=== PATIENT | female | born 1970 | race Caucasian/White ===

== ENCOUNTER → 2017-10-08 | Outpatient (CLI) | payer MEDICARE, MEDICAID ==
[~2017-10-08] MED LIST: KLONOPIN0.5 MG PO; PRISTIQ100 MG PO; SEROQUEL 50 MG50 MG PO; TRAZODONE 150150 M1 PO; TRILEPTAL150 MG PO
== END ==
LOC: M.CT 13:10
DX: Z12.31 Encounter for screening mammogram for malignant neoplasm of breast (principal); N83.202 Unspecified ovarian cyst, left side; K59.09 Other constipation; R31.29 Other microscopic hematuria

== ENCOUNTER → 2017-10-19 | Outpatient (CLI) | payer MEDICARE, MEDICAID ==
--- NOTE | 2017-10-21 09:46 | PF ---
[address] [address] PULMONARY FUNCTION REPORT Name: CHRIS GAYTAN Room: [facility].#: [id number] Admission: 10/19/17 Attend Phys: Marie Cavazos MD Discharge: Date of : 68 Report #: [id number] THIS REPORT FOR: //name// CC: Ana Cavazos DATE OF SERVICE: 10/20/2017 PULMONARY FUNCTION TEST REFERRING PHYSICIAN: JANIYA Joseph SPIROMETRY: The FEV1/FVC was 57% predicted. The FEV1 was 1.72 at 60% predicted. Forced vital capacity was 3 liters at 83% predicted. Total lung capacity was 4.58 liters at 92% predicted and DLCO was 76% predicted. This pulmonary function test demonstrates moderate degree obstructive pulmonary defect with normal DLCO and no positive bronchodilator response. <ELECTRONICALLY SIGNED> By: Flavia Montesinos MD 10/21/17 0946 [id number] Montesinos MD /nt
== END ==
LOC: M.PUL 10:04
DX: J44.9 Chronic obstructive pulmonary disease, unspecified (principal)

== ENCOUNTER → 2018-04-26 | Outpatient (CLI) | payer MEDICARE, MEDICAID | LOC: M.RAD 11:26 | DX: R76.11 Nonspecific reaction to tuberculin skin test without active tuberculosis (principal); Z87.891 Personal history of nicotine dependence ==

== ENCOUNTER → 2018-05-05 | Outpatient (CLI) | payer MEDICARE, MEDICAID | LOC: M.MRI 05-02 11:30 | DX: M71.22 Synovial cyst of popliteal space [Baker], left knee (principal); M25.762 Osteophyte, left knee; F17.210 Nicotine dependence, cigarettes, uncomplicated ==

== ENCOUNTER → 2021-06-24 | Outpatient (CLI) | payer OTHER, MEDICAID ==
[~2021-06-24] MED LIST changes: +CIPRO500 M1 PO; +METRONIDAZOLE500 M4 PO; +PREDNISONE 20 M20 M1 PO
== END ==
LOC: M.RAD 09:34
PROVIDERS: ATTEND Nurse Practitioner Family
DX: Z12.31 Encounter for screening mammogram for malignant neoplasm of breast (principal)

== ENCOUNTER → 2021-06-24 | Outpatient (CLI) | payer OTHER | LOC: M.CT 09:40 | PROVIDERS: ATTEND Nurse Practitioner Family | DX: Z13.6 Encounter for screening for cardiovascular disorders (principal); I25.10 Atherosclerotic heart disease of native coronary artery without angina pectoris ==

== ENCOUNTER 2021-06-27 13:15 | Emergency (ER) | payer OTHER, MEDICAID ==
[~2021-06-27] VITALS: Ht 162.6 cm; Wt 72.6 kg
[~2021-06-27 13:15] MED LIST changes: -CIPRO500 M1 PO; -METRONIDAZOLE500 M4 PO; -PREDNISONE 20 M20 M1 PO
[2021-06-27 14:05] LABS: URINE BILIRUBIN NEGATIVE (Negative); URINE BLOOD NEGATIVE (Negative); URINE CLARITY CLEAR; URINE COLOR YELLOW; URINE GLUCOSE-RANDOM NEGATIVE (Negative); URINE KETONES NEGATIVE (Negative); URINE LEUKOCYTES-REFLEX NEGATIVE (Negative); URINE NITRITE-REFLEX NEGATIVE (Negative); URINE PROTEIN NEGATIVE (Negative); URINE UROBILINOGEN 0.2 E.U./dl (0.2-1.0)
[2021-06-27 14:20] LABS: MCH 28.2 pg (26.0-34.0)
[2021-06-27 14:22] LABS: ABSOLUTE BASOPHILS 0.1 thou/uL (0.0-0.2); ABSOLUTE EOSINOPHILS 0.4 thou/uL (0.0-0.7); ABSOLUTE LYMPHOCYTES 1.5 thou/uL (0.8-5.3); ABSOLUTE MONOCYTES 0.3 thou/uL (0.0-1.2); ABSOLUTE NEUTROPHILS 3.3 thou/uL (1.6-8.1); BASOPHILS 0.9 %; EOSINOPHILS 6.6 %; HEMOGLOBIN 13.3 gm/dL (12.0-15.0); LYMPHOCYTES 27.4 %; MCHC 32.3 g/dL (28.0-37.0); MCV 87.2 fL (80.0-100.0); MONOCYTES 5.9 %; MPV 8.4 fl. (7.2-11.1); NUCLEATED RBCS 0 /100WBC; PLATELET COUNT* 207 thou/uL (150-400); POLYS 59.2 %; RBC 4.71 mil/uL (4.20-5.00); RDW-CV 14.3 % (10.5-14.5); WBC 5.5 thou/uL (4.0-11.0)
[2021-06-27 14:46] LABS: CALCIUM 9.3 mg/dL (8.5-10.1); CREATININE 0.7 mg/dL (0.6-1.3); POTASSIUM 4.6 mmol/L (3.5-5.1)
[2021-06-27 14:50] LABS: ALBUMIN 3.5 g/dL (3.4-5.0); TOTAL BILIRUBIN 0.1 mg/dL (<0.1-1.0); TOTAL PROTEIN 7.8 g/dL (6.4-8.2)
[2021-06-27 14:53] LABS: PLATELET ESTIMATE ADEQUATE
[2021-06-27] MEDS ORDERED: CIPRO500 M1 PO (15:01)
[2021-06-27] MEDS ORDERED: METRONIDAZOLE500 M4 PO (15:01)
[2021-06-27] MEDS ORDERED: PREDNISONE 20 M20 M1 PO (15:01)
[2021-06-27 15:08] VITALS: BP 134/72
--- NOTE | 2021-06-28 10:16 | EKG ---
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
== END 2021-06-27 15:08 | disposition home or self-care (01) ==
LOC: M.ERS 13:15
PROVIDERS: Family Medicine
DX: K52.9 Noninfective gastroenteritis and colitis, unspecified (principal); F17.210 Nicotine dependence, cigarettes, uncomplicated; Z79.899 Other long term (current) drug therapy

== ENCOUNTER → 2021-08-20 | Outpatient (CLI) | payer OTHER, MEDICAID ==
[~2021-08-20] MED LIST changes: +CIPRO500 M1 PO; +METRONIDAZOLE500 M4 PO; +PREDNISONE 20 M20 M1 PO
== END ==
LOC: M.LAB 10:13
PROVIDERS: ATTEND Internal Medicine Gastroenterology
DX: Z01.812 Encounter for preprocedural laboratory examination (principal); Z20.822 Contact with and (suspected) exposure to COVID-19

== ENCOUNTER → 2021-08-29 | Outpatient (CLI) | payer OTHER, MEDICAID ==
[2021-08-29 09:21] LABS: HEMATOCRIT 38.9 % (37.0-47.0); HEMOGLOBIN 12.7 gm/dL (12.0-15.0); MCH 27.9 pg (26.0-34.0); MCHC 32.6 g/dL (28.0-37.0); MCV 85.4 fL (80.0-100.0); MPV 6.9 fl. (7.2-11.1); NUCLEATED RBCS 0 /100WBC; PLATELET COUNT* 410 thou/uL (150-400); RBC 4.55 mil/uL (4.20-5.00); RDW-CV 14.2 % (10.5-14.5); WBC 7.1 thou/uL (4.0-11.0)
[2021-08-29 10:13] LABS: ALBUMIN 3.8 g/dL (3.4-5.0); CALCIUM 9.5 mg/dL (8.5-10.1); CREATININE 0.6 mg/dL (0.6-1.3); POTASSIUM 4.4 mmol/L (3.5-5.1); TOTAL BILIRUBIN 0.2 mg/dL (<0.1-1.0); TOTAL PROTEIN 8.2 g/dL (6.4-8.2)
[2021-08-29 10:24] LABS: ABSOLUTE BASOPHILS 0.1 thou/uL (0.0-0.2); ABSOLUTE LYMPHOCYTES 1.1 thou/uL (0.8-5.3)
[2021-08-29 10:25] LABS: PLATELET ESTIMATE INCREASED
== END ==
LOC: M.LAB 08-25 13:03 → M.CT 10:00
PROVIDERS: ATTEND Internal Medicine Gastroenterology
DX: J84.9 Interstitial pulmonary disease, unspecified (principal); M25.78 Osteophyte, vertebrae; R19.4 Change in bowel habit; K62.5 Hemorrhage of anus and rectum; K62.89 Other specified diseases of anus and rectum; Z90.49 Acquired absence of other specified parts of digestive tract; Z90.722 Acquired absence of ovaries, bilateral; Z90.710 Acquired absence of both cervix and uterus

== ENCOUNTER 2021-09-11 00:30 | Emergency (ER) | payer OTHER, MEDICAID ==
[~2021-09-11] VITALS: Ht 165.1 cm; Wt 74.8 kg
[2021-09-11 01:13] LABS: ABSOLUTE BASOPHILS 0.1 thou/uL (0.0-0.2); ABSOLUTE EOSINOPHILS 0.2 thou/uL (0.0-0.7); ABSOLUTE LYMPHOCYTES 1.3 thou/uL (0.8-5.3); ABSOLUTE MONOCYTES 0.7 thou/uL (0.0-1.2); ABSOLUTE NEUTROPHILS 12.9 thou/uL (1.6-8.1); BASOPHILS 0.6 %; EOSINOPHILS 1.6 %; HEMOGLOBIN 12.8 gm/dL (12.0-15.0); LYMPHOCYTES 8.5 %; MCH 28.1 pg (26.0-34.0); MCHC 32.7 g/dL (28.0-37.0); MONOCYTES 4.5 %; MPV 7.2 fl. (7.2-11.1); NUCLEATED RBCS 0 /100WBC; PLATELET COUNT* 325 thou/uL (150-400); POLYS 84.8 %; RBC 4.54 mil/uL (4.20-5.00); RDW-CV 14.7 % (10.5-14.5); WBC 15.2 thou/uL (4.0-11.0)
[2021-09-11 01:17] LABS: CALCIUM 8.9 mg/dL (8.5-10.1); CREATININE 0.8 mg/dL (0.6-1.3); POTASSIUM 3.9 mmol/L (3.5-5.1)
[2021-09-11 01:21] LABS: ALBUMIN 3.8 g/dL (3.4-5.0); TOTAL BILIRUBIN 0.2 mg/dL (<0.1-1.0); TOTAL PROTEIN 7.7 g/dL (6.4-8.2)
[2021-09-11] MEDS ORDERED: CORTENEMA100 MG/60 RECTAL ×2 (05:52→06:00)
[2021-09-11 06:16] VITALS: BP 117/67
== END 2021-09-11 06:19 | disposition home or self-care (01) ==
LOC: M.ERS 00:30
PROVIDERS: Emergency Medicine
DX: K62.89 Other specified diseases of anus and rectum (principal); F17.210 Nicotine dependence, cigarettes, uncomplicated; Z98.890 Other specified postprocedural states; Z79.2 Long term (current) use of antibiotics; Z79.899 Other long term (current) drug therapy